=== PATIENT | male | born 1955 | race Caucasian/White ===

== ENCOUNTER → 2024-11-20 11:37 | Outpatient (CLI) | payer MEDICARE, SELFPAY ==
--- NOTE | 2024-11-20 14:11 | ST.SWALLOW ---
Visit Care Team Role Provider Type JOY Vale Attending Provider Non-Staff Referring Provider Specialty: Nursing Address: [facility] [address], [place], [address] Email: Modified Barium Swallow Study TREASURY ACCOUNTANT Modified Barium Swallow Study Start: 11/20/24 13:37 Freq: Status: Active Protocol: Document 11/20/24 13:37 SS (Rec: 11/20/24 14:11 SS Desktop) Modified Barium Swallow Study Total Time Visit Start Time 12:00 Visit Stop Time 12:20 Total Visit Minutes 20 Referral Referring Physician Magdalena Herrmann PA-C Reason for Referral Swallowing concerns Setting Setting Outpatient Care Patient Information Identification Type Name,Date of Patient History Vernon Terry is a 68-year-old male referred to speech pathology for evaluation of swallowing function, including Modified Barium Swallow Study (MBSS), to visualize and assess swallow function and anatomy, determine aspiration risk, make appropriate and updated diet and treatment recommendations, as well as to identify need for additional referrals. He reported onset of swallowing difficulty about 5 years ago, with no change to severity/frequency. Pt expressed that dry foods (such as chicken and fish) get stuck in his throat occasionally. Liquid wash and slow rate often help in clearing this sensation. He denied difficulty with liquids or pills. He also reported increased burping and feeling prematurely full during meals. Pt denied coughing, choking, or other overt s/sx of aspiration. He has a history of GERD and currently takes Famotidine to manage it. He has a throat clear at baseline that is a symptom of the GERD . He denied neurological history or recent injuries or surgeries to the head/neck area. He denied history of pneumonia. He reported he has not had to modify his diet and has not experienced unintentional weight loss. Current diet is thin liquids, regular textures, and pills with liquid wash. His PCP had recommended a GI referral, though it has not been scheduled yet. Subjective Observations Pt arrived to the appointment on time. The directions and procedures were described for him. He indicated he understood and agreed to proceed. He was able to provide case history without overt difficulty. Oral motor evaluation was WNL. Dentition natural and in good hygiene. Patient Positioning Position View Lat-A/P Imaging Lateral View Textures Administered Trials Presented Thin Liquid via Spoon (IDDSI 0 ),Thin Liquid via Cup (IDDSI 0 ),Puree (IDDSI 4),Regular ( IDDSI 7) Barium Tablet Yes The IDDSI Framework Protocol: IDDSI.1 Oral Impairment Source: The Modified Barium Swallow Impairment Profile (MBSImP??) Lip Closure No labial escape Tongue Control During Bolus Hold Cohesive bolus between tongue to palatal seal Bolus Preparation/Mastication Timely & efficient chewing & mashing Bolus Transport/Lingual Motion Brisk tongue motion Oral Residue Complete oral clearance Initiation of Pharyngeal Swallow Bolus head at posterior laryngeal surface of epiglottis Additional Oral Impairment Observations Oral phase WNL. Oral acceptance of bolus was WNL. Pt demonstrated adequate labial seal. Bolus formation was organized and efficient. Anterior-posterior transit of the bolus was timely. Mastication was timely. No oral residue noted post- swallow. Oral bolus control was adequate. Pharyngeal Impairment Source: The Modified Barium Swallow Impairment Profile (MBSImP??) Soft Palate Elevation No bolus between soft palate & pharyngeal wall Laryngeal Elevation Comp.sup.move.thyroid cart.w/ comp.approx.arytenoids to epiglot petiole Anterior Hyoid Excursion Complete anterior movement Epiglottic Movement Complete inversion Laryngeal Vestibular Closure Complete; no air/contrast in laryngeal vestibule Pharyngeal Stripping Wave Present - complete Pharyngoesophageal Segment Opening Complete distention & complete duration; no obstruction of flow Tongue Base Retraction Trace column of contrast/air betwn tongue base & post. pharyngeal wall Pharyngeal Residue Trace residue within/on pharyngeal structures Location Diffuse (>3 areas) Additional Pharyngeal Impairment Pharyngeal phase was WNL. Observations Swallow was initiated with liquids at the pyriform sinuses. Swallow was initiated with solids at the base of tongue. This is a normal swallow variation. Velopharyngeal closure was WNL . Hyoid/laryngeal elevation was judged to be complete. The epiglottis did invert; inversion is characterized as complete. Tongue base retraction was WNL. Pharyngeal stripping wave was complete. Cricopharyngeal opening appeared adequate and did not appear to impede bolus flow into the esophagus. Trace residue primarily at the base of tongue, posterior pharyngeal wall, valleculae and pyriform sinuses, which is typical for pt?s age. No tracheal penetration or laryngeal aspiration were observed A/P View Textures Administered Trials Presented Thin Liquid via Cup (IDDSI 0), Regular (IDDSI 7) The IDDSI Framework Protocol: IDDSI.1 A/P View Observations Pharyngeal Contraction Complete Esophageal Clearance Upright Position Esophageal retention Esophageal Function Slowed Clearing,Poor Motility Additional A-P Observations Mild impairment of esophageal phase. Esophageal retention of regular texture that cleared with use of liquid wash. Slowed clearing and poor motility observed. Calibrated barium tablet not trialed per pt request d/t size of tablet. Clinical Impressions Dysphagia Type Esophageal Findings Oral and pharyngeal phases of the swallow were WNL. Pt presented with mild impairments in the esophageal phase of the swallow characterized slow clearance of solids to the stomach, which cleared with liquid wash . Recommended pt remain upright during PO intake and for 30-minutes after, utilize slow rate, alternate liquids and solids, and use liquid wash as needed to allow for esophageal relaxation/ clearance. Recommend GI referral for further assessment of the esophageal phase of the swallow. Patient Appropriate for Therapy No: Esophageal dysphagia Recommendations Diet Liquids Order Thin (IDDSI 0) Diet Order Regular (IDDSI 7) Medication Recommendation As Tolerated,Whole Aspiration Precautions Recommended Precautions Upright at 90 Degrees, Alternate Liquids/Solids Additional Precautions Liquid wash as needed Treatment Plan Recommended Referrals GI Consult
--- NOTE | 2024-11-20 14:15 | ST-OP ANOTE ---
Physical, Occupational & Speech Therapy At [facility] Speech Therapy Note MBSS report sent to pt's PCP Neisha Jovel and referring provider Magdalena Herrmann via [employer]. Reviewed GI referral recommendation.
== END ==
PROVIDERS: Referring Provider Nurse Practitioner Family; Visit Provider Nurse Practitioner Family
DX: R13.10 Dysphagia, unspecified (principal)
CPT/HCPCS: 74230; 92611